=== PATIENT | male | born 1985 | race Asian ===

== ENCOUNTER 2016-07-08 01:28 | Emergency (ER) | payer MEDICAID ==
[~2016-07-08] VITALS: Ht 180.3 cm; Wt 86.4 kg
[~2016-07-08 01:28] MED LIST: DIVA500T35 PO; DIVA500T69 PO; OLAN5Z PO
[2016-07-08] MEDS ORDERED: HYDROGEN PEROXIDE 118 ML SOLUTION ONE (01:39)
[2016-07-08 01:40] VITALS: BP 151/117
[2016-07-08] MEDS ORDERED: PERTUSS(ACELL),DIPH,TET VAC/PF 0.5 ML VIAL IM ONE (01:45)
== END 2016-07-08 04:30 | disposition home or self-care (01) ==
LOC: EMS 01:29
DX: S51.811A Laceration without foreign body of right forearm, initial encounter (principal); F12.90 Cannabis use, unspecified, uncomplicated; X58.XXXA Exposure to other specified factors, initial encounter; Y93.89 Activity, other specified; Y92.149 Unspecified place in prison as the place of occurrence of the external cause; Y99.8 Other external cause status
CPT/HCPCS: 12002; 90471; 90715; 99283